=== PATIENT | male | born 2005 | race Two or more races ===

== ENCOUNTER 2025-08-07 17:52 | Emergency (ER) | payer SELFPAY | END 2025-08-07 20:04 | disposition home or self-care (01) | LOC: JD.ED 17:52 | DX: S67.195A Crushing injury of left ring finger, initial encounter (principal); W23.1XXA Caught, crushed, jammed, or pinched between stationary objects, initial encounter; Y93.89 Activity, other specified; Y99.0 Civilian activity done for income or pay | CPT/HCPCS: 12001; 73140; 99283; J2003 ==